=== PATIENT | female | born 1965 | race Caucasian/White ===

== ENCOUNTER 2016-09-11 07:56 | Day surgery (SDC) | payer BC ==
[~2016-09-11 07:56] MED LIST: LIDOCAINE 2% VISCOUS(20 MG/1 ML) - 15 ML UD CUP PO ONE; LIDOCAINE HCL/PF 2% (20 MG/ML) - 5 ML SYRINGE ONE; LIDOCAINE W/ SODIUM BICARB 0.5 ML SYR ONE; Lactated Ringers 1,000 ML PRIMARY IV ONE; MIDAZOLAM 5 MG/1 ML ONE; fentaNYL Inj 100 MCG/2 ML VIAL ONE
--- NOTE | 2016-09-11 10:00 | GEN.OPNOTE ---
EGD Operative Note Surgery Date: 09/11/16 Preoperative Diagnosis: Dysphasia Postoperative Diagnosis: Dysphasia Procedure: Esophagogastroduodenoscopy with dilation Surgeon: Dick Mustafa MD Anesthesia Provider: Johnnie Coates CRNA Anesthesia Type: MAC Indications: Patient feels that food is sticking when she is swallowing Findings: Esophagus: Olympus video EGD scope inserted posterior pharynx. That into the esophagus under direct visualization. Esophagus appeared be normal. GE Junction : GE junction proximal be 40 cm from incisors. GE junction. Is slightly tight but not a real stricture Fundus : Scope reflux on itself revealing normal fundus Body : Body stomach is within normal limits except some retained food products Prepyloric : Prepyloric areas normal Small Intestine : First second third portion duodenum free from disease A lubricated flexible upper endoscope was inserted and passed through the esophagus and stomach into the duodenum.
[2016-09-11 14:43] VITALS: RESP 16; TEMP 97.4
== END 2016-09-11 12:10 | disposition home or self-care (01) ==
LOC: SDSC 07:56
PROVIDERS: ATTEND Surgery
DX: R13.10 Dysphagia, unspecified (principal)
CPT/HCPCS: 43248; J2704; J3010; J2001; J2250; J7120

== ENCOUNTER → 2016-09-30 | Outpatient (CLI) | payer BC ==
[2016-09-30 12:53] LABS: BLOOD UREA NITROGEN 14 mg/dL (7-22); CALCIUM 9.1 mg/dL (8.7-10.7); CHOL/HDL RATIO 3.58 RATIO (0-4.0); EST GLOMERULAR FILTRATION > 60 (>60 ml/min/1.73m(2)); HDL CHOLESTEROL 53 mg/dL (40-150); SERUM CHOLESTEROL 190 mg/dL (120-200)
[2016-09-30 12:55] LABS: HEMOGLOBIN A1C 5.11 % (4.2-6.0)
== END ==
LOC: MOB LAB 11:18
PROVIDERS: ATTEND Nurse Practitioner Family
DX: R73.9 Hyperglycemia, unspecified (principal); R63.5 Abnormal weight gain; F32.9 Major depressive disorder, single episode, unspecified; Z83.3 Family history of diabetes mellitus
CPT/HCPCS: 36415; 80053; 80061; 82306; 83036; 84443